=== PATIENT | male | born 1965 | race Two or more races ===

== ENCOUNTER 2017-01-11 00:44 | Inpatient (IN) | payer OTHER ==
[~2017-01-11] VITALS: Ht 167.6 cm; Wt 72.1 kg
--- NOTE | 2017-01-11 00:50 | NUR ---
51 YO MALE BB SELF. PT IS ALERT X 4, C/O BILAT LOWER EXTREMITY PAIN. PT AMBULATED TO ER BED, NAD NOTED, SKIN WARM AND DRY, RR EVEN AND UNLABORED. NOTED REDNESS/ SWELLING BILAT LOWER EXTREMITIES
--- NOTE | 2017-01-11 01:00 | NUR ---
18G LEFT AC IV STARTED, BLOOD SAMPLE OBTAINED AND SENT TO LAB. MEDICATED PT ORDERED
[2017-01-11] MEDS ORDERED: VANCOMYCIN 1 GM VIAL ONE (01:17)
[2017-01-11] MEDS ORDERED: IV SET PRIMARY PUMP SET 1 EA INFUS.SET MC ONE ×3 (01:17→02:36)
[2017-01-11] MEDS ORDERED: IV D5W 250 ML IV ONE (01:17)
[2017-01-11] MEDS ORDERED: VANCOMYCIN 1 GM in IV D5W 250 ML IV ONE (01:30)
[2017-01-11 01:37] LABS: BASOPHILS # (AUTO) 0.1 /CMM (0.0-0.2); BASOPHILS % (AUTO) 0.6 % (0.0-2.0); EOSINOPHILS # (AUTO) 1.3 /CMM (0.0-0.7); EOSINOPHILS % (AUTO) 11.8 % (0.0-6.0); HEMATOCRIT 42 % (39-51); HEMOGLOBIN 13.8 g/dL (13.5-17.5); LYMPHOCYTES # (AUTO) 1.5 /CMM (0.8-4.8); LYMPHOCYTES % (AUTO) 13.9 % (20.0-44.0); MEAN CORPUSCULAR HEMOGLOBIN 31 PG (26.0-33.0); MEAN CORPUSCULAR HGB CONC 33 g/dl (31.0-36.0); MEAN CORPUSCULAR VOLUME 93 fL (80-96); MONOCYTES # (AUTO) 1.1 /CMM (0.1-1.30); MONOCYTES % (AUTO) 10.5 % (2.0-12.0); NEUTROPHILS # (AUTO) 6.9 /CMM (1.8-8.9); NEUTROPHILS % (AUTO) 63.2 % (43.0-81.0); PLATELET COUNT (AUTO) 439 /CMM (150-450); RDW COEFFICIENT OF VARIATION 13.9 (11.5-15.0); RED BLOOD CELL COUNT(AUTO) 4.51 MIL/uL (4.5-6.0); WHITE BLOOD COUNT (AUTO) 10.9 K/uL (4.3-11.0)
--- NOTE | 2017-01-11 01:50 | NUR ---
TRANSPORED PT TO MS BED WITHOUT INCIDENT
[2017-01-11 01:54] LABS: CALCIUM, SERUM 8.5 mg/dL (8.5-10.1); POTASSIUM 3.7 mmol/L (3.5-5.1)
[2017-01-11 02:03] LABS: LACTIC ACID 1.4 mmol/L (0.4-2.0)
--- NOTE | 2017-01-11 02:25 | NUR ---
MS NURSES OPENING NOTES RECEIVED PT FROM er WITH DX OF BILATERAL LEG CELLULITIS. A/O X4 , AFGHAN SPEAKING. AMBULATORY. ADMISSION INSTRUCTIONS WERE GIVEN. PT DENIES SOB AND ADMITS PAIN LEVEL OF 6. BED IN LOWEST AND LOCKED POSITION, CALL LIGHT WITHIN REACH, SIDERAILS UP X2. WILL CONTINUE TO ASSESS, MONITOR, AND IMPLEMENT PLAN OF CARE. Addendum: 01/11/17 at 0625 by LUMA BOUCHER RN WRONG PATIENT Addendum: 01/11/17 at 0630 by LUMA BOUCHER RN CORRECT PATIENT Addendum: 01/11/17 at 0630 by LUMA BOUCHER RN OPENING NOTE IS FOR THE CORRECT PATIENT
[2017-01-11] MEDS ORDERED: IV NS 0.9% 250 ML IV ONE (02:35)
[2017-01-11 02:55] VITALS: BP 144/91
[2017-01-11] MEDS ORDERED: SECONDARY IV SET 1 EA INFUS.SET MC ONE ×2 (03:10→04:09)
[2017-01-11] MEDS ORDERED: HYDROCODONE/APAP 5/325MG 1 EACH TABLET ONE (03:51)
[2017-01-11] MEDS: HYDROCODONE/APAP 5/325MG 1 EACH TABLET PO PRN ×2 (03:56→08:45)
[2017-01-11] MEDS ORDERED: ZOLPIDEM TARTRATE 5 MG TABLET PO PRN (04:00)
[2017-01-11] MEDS ORDERED: ACETAMINOPHEN 325 MG TABLET PO PRN (04:00)
[2017-01-11] MEDS ORDERED: PIPERACILLIN /TAZOBACTAM 3.375 G VIAL IV ONE (04:09)
[2017-01-11] MEDS ORDERED: IV D5W 50 ML IV ONE (04:09)
[2017-01-11] MEDS ORDERED: PIPERACILLIN /TAZOBACTAM 3.375 G in IV D5W 50 ML IV SCH ×2 (05:00→08:46)
[2017-01-11 05:22] VITALS: BP 144/91
--- NOTE | 2017-01-11 06:19 | NUR ---
MS NURSE'S CLOSING NOTES PATIENT IS RESTING IN BED IN STABLE CONDITION. NO SIGNS OF DISTRESS OR SOB. NO COMPLAINS OF PAIN AT THIS TIME. BED IS IN LOW LOCKED POSITION, SIDE RAILS UP X2, CALL LIGHT WITHIN REACH. ALL SAFETY MEASURES INITIATED.
[2017-01-11 08:00] VITALS: BP 133/80
[2017-01-11] MEDS: ENOXAPARIN SODIUM 40 MG/0.4 ML DISP.SYRIN SQ SCH (08:52)
[2017-01-11] MEDS ORDERED: FEE PK DOSING 1 MIN EA MC ONE (08:52)
--- NOTE | 2017-01-11 09:33 | NUR ---
WOUND CARE CONSULT: PATIENT SEEN AND SKIN ASSESSMENT DONE. PATIENT ALERT, ORIENTED, AMBULATORY, INDEPENDENT WITH BED MOBILITY, CONTINENT, CHACHO 19. SEE TODAY'S SKIN ASSESSMENT IN PCS ALONG WITH RECOMMENDATIONS DISCUSSED WITH NURSING STAFF. NURSING STAFF WILL CONTACT PCP REGARDING ID CONSULT. MD IN AGREEMENT WITH PLAN OF CARE. Addendum: 01/11/17 at 0935 by MAUREEN ADAIR WNDNU Amended: Links added.
[2017-01-11] MEDS: VANCOMYCIN 0.75 GM in IV D5W 250 ML IV SCH ×2 (09:49→16:54)
[2017-01-11] MEDS: PIPERACILLIN /TAZOBACTAM 3.375 G in IV D5W 50 ML IV SCH ×3 (11:13→23:43)
[2017-01-11 16:00] VITALS: BP 142/81
--- NOTE | 2017-01-11 18:57 | NUR ---
MS RN NOTES PATIENT STABLE NO COMPLICATIONS NO CHANGES. PAIN MANAGED WITH PRN MEDICATIONS AND PHARM MEASURES. ALL DUE MEDS GIVEN AND ALL NEEDS MET. PATIENT STATES NO NEEDS AT THIS TIME. LEFT WITH CALL LIGHT IN REACH, BED LOWERED AND LOCKED, RAILS UPX3 FOR SAFETY. PATIENT WANTED DRESSINGS REMOVED FROM LEGS. COMPLIANT WITH ELEVATING ON PILLOWS. CARE WILL BE ENDORSED TO RN AT THIS TIME
[2017-01-11] MEDS ORDERED: DIPH25CA46 PO (19:42)
--- NOTE | 2017-01-11 19:43 | NUR ---
MS/RN OPENING NOTES PT AWAKE, A/OX4. ON ROOM AIR, NO SOB OR DISTRESS NOTED. DENIES PAIN AT THIS TIME. IV TO RIGHT FA PATENT AND INTACT. ENCOURAGED PT TO BE CAUTIOUS ABOUT IV SITE TO AVOID IT BEING DISLODGED. PT VERBALIZED UNDERSTANDING. BED IN LOW/LOCKED POSITION WITH CALL LIGHT IN REACH. BED RAILS UPX2. PT WENT DOWN TO GET RELATIONS MGR FROM THE CAR AND BROUGHT UP HOME MEDICATION AND CREAMS. HOME MEDICATION BANOPHEN 25MG PO ENTERED IN THE RECONCILED MEDS AND PUT IN BAG TO BE SENT DOWN TO PHARMACY. ANTI-ITCH CREAMS REMAIN AT BEDSIDE AND ASKED PT TO HAVE FAMILY TAKE THEM HOME TOMORROW. WILL CONTINUE TO MONITOR
[2017-01-11 20:07] VITALS: BP 135/78
[2017-01-12] MEDS: VANCOMYCIN 0.75 GM in IV D5W 250 ML IV SCH ×2 (01:45→09:33)
--- NOTE | 2017-01-12 02:00 | NUR ---
MS/RN NOTES PT ASLEEP, EASILY AROUSABLE TO NAME. BREATHING EVEN AND UNLABORED. NO DISTRESS NOTED. WILL CONTINUE TO MONITOR
[2017-01-12] MEDS ORDERED: SECONDARY IV SET 1 EA INFUS.SET MC ONE (05:41)
[2017-01-12] MEDS: PIPERACILLIN /TAZOBACTAM 3.375 G in IV D5W 50 ML IV SCH ×2 (05:45→11:13)
--- NOTE | 2017-01-12 06:40 | NUR ---
MS/RN CLOSING NOTES PT ASLEEP, EASILY AROUSABLE. ON ROOM AIR, NO SOB OR DISTRESS NOTED. BREATHING EVEN AND UNLABORED. NO S/S OF PAIN AT THIS TIME. IV TO RIGHT FA PATENT AND INTACT. ENCOURAGED PT TO BE MINDFUL OF IV TO AVOID DISLODGING IT. MADE PT COMFORTABLE THROUGHOUT SHIFT. ALL NEEDS MET AND ATTENDED TO. BED REMAINS IN LOW/LOCKED POSITION WITH CALL LIGHT IN REACH. BED RAILS UPX2. WILL ENDORSE TO AM SHIFT MERLIN.
--- NOTE | 2017-01-12 07:15 | NUR ---
MS RN OPENING RECEIVED PT A/OX4 DENIES PAIN SOB DIFFICULTY BREATHING AT THIS TIME. PATIENT APPEARS STABLE NO COMPLAINTS AND NO NEEDS. CALL LIGHT IN REACH, BED LOWERED AND LOCKED, RAILS UPX3 FOR SAFETY AND WILL ROUND Q2H OR LESS PER NEEDS.
[2017-01-12] MEDS ORDERED: DOXY100C2 PO (07:56)
[2017-01-12 08:00] VITALS: BP 130/77
[2017-01-12 08:26] LABS: EOSINOPHILS % (AUTO) 9.9 % (0.0-6.0); HEMATOCRIT 43 % (39-51); HEMOGLOBIN 14.2 g/dL (13.5-17.5); LYMPHOCYTES # (AUTO) 1.2 /CMM (0.8-4.8); LYMPHOCYTES % (AUTO) 11.9 % (20.0-44.0); MEAN CORPUSCULAR HEMOGLOBIN 30 PG (26.0-33.0); MEAN CORPUSCULAR HGB CONC 33 g/dl (31.0-36.0); MEAN CORPUSCULAR VOLUME 93 fL (80-96); MONOCYTES # (AUTO) 1.1 /CMM (0.1-1.30); MONOCYTES % (AUTO) 10.6 % (2.0-12.0); NEUTROPHILS # (AUTO) 6.9 /CMM (1.8-8.9); NEUTROPHILS % (AUTO) 67.6 % (43.0-81.0); PLATELET COUNT (AUTO) 415 /CMM (150-450); RDW COEFFICIENT OF VARIATION 13.7 (11.5-15.0); RED BLOOD CELL COUNT(AUTO) 4.66 MIL/uL (4.5-6.0); WHITE BLOOD COUNT (AUTO) 10.2 K/uL (4.3-11.0)
[2017-01-12 08:38] LABS: CALCIUM, SERUM 8.3 mg/dL (8.5-10.1); CREATININE 0.9 mg/dL (0.6-1.3); POTASSIUM 4.3 mmol/L (3.5-5.1)
[2017-01-12] MEDS: ENOXAPARIN SODIUM 40 MG/0.4 ML DISP.SYRIN SQ SCH (09:34)
--- NOTE | 2017-01-12 13:16 | NUR ---
MS INDEPENDENT SALES REPRESENTATIVE PT STABLE NO COMPLICATIONS NO CHANGES. PATIENT EDUCATED ON DC MATERIAL AND STATED UNDERSTANDING. ALL BELONGINGS ACCOUNTED FOR AND SIGNED. MEDICATIONS GIVEN BACK TO PATIENT. IV REMOVED PRESSURE AND DRESSING APPLIED NO BLEEDING. PATIENT STATES NO NEEDS AND ALL QUESTIONS ANSWERED. ASSISTED TO CAR BY ANDRES MONTALVO. Addendum: 01/12/17 at 1720 by CHEMA CERNA RN PATIENT REFUSING PICTURES ON DISCHARGE
[2017-01-12] MEDS ORDERED: VANCOMYCIN 1 GM in IV D5W 250 ML IV SCH (14:00)
== END 2017-01-12 13:15 | disposition home or self-care (01) | DRG 383 ==
LOC: ER 00:44 → MED 02:04
PROVIDERS: ADMIT Internal Medicine; ATTEND Internal Medicine
DX: L03.115 Cellulitis of right lower limb (principal); I87.2 Venous insufficiency (chronic) (peripheral); L03.116 Cellulitis of left lower limb; L73.9 Follicular disorder, unspecified
CPT/HCPCS: 36415; 80048-TC; 80202-TC; 83605-TC; 85025-TC; 87040-TC; 87081-TC; 93307-TC; 93970-TC; A4606; J1650; J2543; J3370; J7050; J7060; Z7610

== ENCOUNTER 2025-05-20 17:39 | Emergency (ER) | payer MEDICARE, OTHER ==
[~2025-05-20] VITALS: Ht 167.6 cm; Wt 72.6 kg
[~2025-05-20 17:39] MED LIST: DIPH-1062 PO; DOXY100C2 PO
[2025-05-20] MEDS ORDERED: ONDANSETRON 4 MG TAB.RAPDIS ONE (18:50)
[2025-05-20] MEDS ORDERED: MORPHINE SULFATE INJ 4 MG/ML DISP.SYRIN ONE (18:50)
[2025-05-20] MEDS ORDERED: TDAP [DIPH/PERTUSSIS/TET] 0.5 ML VIAL IM ONE (18:51)
[2025-05-20] MEDS: MORPHINE SULFATE INJ 2 MG/ML DISP.SYRIN IM ONE (18:58)
[2025-05-20] MEDS: TDAP [DIPH/PERTUSSIS/TET] 0.5 ML VIAL IM ONE (18:59)
[2025-05-20] MEDS: ONDANSETRON 4 MG TAB.RAPDIS PO ONE (18:59)
[2025-05-20] MEDS ORDERED: IBUP-1490 PO (20:52)
[2025-05-20] MEDS ORDERED: HYDR-3972 PO (20:52)
[2025-05-20 21:34] VITALS: BP 120/85; TEMP 98; O2SAT 98
[2025-05-21] MEDS ORDERED: IBUP-1490 PO (09:23)
== END 2025-05-20 21:36 | disposition home or self-care (01) ==
LOC: ER 18:01
DX: S22.31XA Fracture of one rib, right side, initial encounter for closed fracture (principal); S42.001A Fracture of unspecified part of right clavicle, initial encounter for closed fracture; S80.211A Abrasion, right knee, initial encounter; F17.200 Nicotine dependence, unspecified, uncomplicated; V89.9XXA Person injured in unspecified vehicle accident, initial encounter; Y93.89 Activity, other specified; Y92.89 Other specified places as the place of occurrence of the external cause; Y99.8 Other external cause status
CPT/HCPCS: 99285; 71250; 96372; 90471; 90715; 73030; J2270; Q0162